=== PATIENT | female | born 1985 | race Caucasian/White ===

== ENCOUNTER 2018-11-08 09:21 | Emergency (ER) | payer OTHER ==
[~2018-11-08] VITALS: Ht 157.5 cm; Wt 95.3 kg
[~2018-11-08 09:21] MED LIST: CIPRO500 MG PO; IBUPROFEN800 MG PO; NORFLEX100MG PO; PREMARIN1.25 MG PO; TYLENOL-CODEINE1 TAB PO; ULTRACET PO
[2018-11-08] MEDS ORDERED: ORPHENADRINE C100 MG PO (11:45)
[2018-11-08] MEDS ORDERED: DICLOFENAC POTA50 MG PO (11:45)
[2018-11-08] MEDS ORDERED: VISTARIL25 MG PO (11:45)
== END 2018-11-08 12:37 | disposition home or self-care (01) ==
LOC: ER 09:21
DX: M94.0 Chondrocostal junction syndrome [Tietze] (principal); R07.89 Other chest pain; F41.8 Other specified anxiety disorders

== ENCOUNTER → 2019-02-25 | Emergency (ER) | payer OTHER ==
[~2019-02-25] VITALS: Ht 157.5 cm; Wt 93.4 kg
[~2019-02-25] MED LIST changes: +DICLOFENAC POTA50 MG PO; +ORPHENADRINE C100 MG PO; +VISTARIL25 MG PO
== END | disposition left against medical advice (07) ==
LOC: ER 00:07
DX: Z53.20 Procedure and treatment not carried out because of patient's decision for unspecified reasons (principal)

== ENCOUNTER 2019-11-11 00:19 | Emergency (ER) | payer OTHER ==
[~2019-11-11] VITALS: Ht 157.5 cm; Wt 96.2 kg
[2019-11-11] MEDS ORDERED: RELAFEN 750 MG (00:59)
[2019-11-11] MEDS ORDERED: NORFLEX 100 MG (00:59)
[2019-11-11] MEDS ORDERED: MEDROLPACK PO (03:15)
== END 2019-11-11 03:21 | disposition home or self-care (01) ==
LOC: ER 00:19
DX: G51.0 Bell's palsy (principal); R20.0 Anesthesia of skin

== ENCOUNTER 2020-12-01 10:25 | Emergency (ER) | payer OTHER ==
[~2020-12-01] VITALS: Ht 160 cm; Wt 102.5 kg
[~2020-12-01 10:25] MED LIST changes: +MEDROLPACK PO; +NORFLEX 100 MG; +RELAFEN 750 MG
[2020-12-01] MEDS ORDERED: KETO10TA2 PO (15:44)
[2020-12-01] MEDS ORDERED: NORFLEX100MG PO (15:44)
== END 2020-12-01 15:57 | disposition home or self-care (01) ==
LOC: ER 10:25
DX: R07.89 Other chest pain (principal); F06.4 Anxiety disorder due to known physiological condition; Z03.818 Encounter for observation for suspected exposure to other biological agents ruled out

== ENCOUNTER → 2021-01-28 | Emergency (ER) | payer OTHER ==
[~2021-01-28] VITALS: Ht 157.5 cm; Wt 100.7 kg
[~2021-01-28] MED LIST changes: +DULCOLAX10 MG RECTAL; +KETO10TA2 PO; +MORGIDOX100 MG PO; +MOTRIN IB200 M1 PO; +PROBIOTIC1 EAC2 PO
== END | disposition home or self-care (01) ==
LOC: ER 00:59
DX: R10.13 Epigastric pain (principal); N80.8 Other endometriosis

== ENCOUNTER 2023-03-10 23:50 | Emergency (ER) | payer OTHER ==
[~2023-03-10] VITALS: Ht 157.5 cm; Wt 85.7 kg
[2023-03-10] MEDS ORDERED: COZAAR25 MG PO (23:59)
== END 2023-03-11 04:37 | disposition home or self-care (01) ==
LOC: ER 23:50
DX: A08.8 Other specified intestinal infections (principal); R11.10 Vomiting, unspecified; R10.9 Unspecified abdominal pain; Z88.0 Allergy status to penicillin; Z91.011 Allergy to milk products; Z91.018 Allergy to other foods

== ENCOUNTER 2023-03-15 22:49 | Emergency (ER) | payer OTHER ==
[~2023-03-15] VITALS: Ht 157.5 cm; Wt 84.4 kg
[~2023-03-15 22:49] MED LIST changes: +COZAAR25 MG PO
[2023-03-16] MEDS ORDERED: KETO10TA2 PO (03:55)
[2023-03-16] MEDS ORDERED: ORPHENADRINE C100 MG PO ×2 (03:55→03:56)
== END 2023-03-16 04:06 ==
LOC: ER 22:49
DX: R51.9 Headache, unspecified (principal); S49.82XA Other specified injuries of left shoulder and upper arm, initial encounter; W18.39XA Other fall on same level, initial encounter; Y93.F1 Activity, caregiving, bathing; Y92.012 Bathroom of single-family (private) house as the place of occurrence of the external cause; M54.2 Cervicalgia; I10 Essential (primary) hypertension; Z87.09 Personal history of other diseases of the respiratory system; E16.1 Other hypoglycemia; Z88.0 Allergy status to penicillin; Z91.011 Allergy to milk products; Z91.018 Allergy to other foods

== ENCOUNTER 2023-05-03 09:13 | Emergency (ER) | payer OTHER ==
[~2023-05-03] VITALS: Ht 157.5 cm; Wt 82.1 kg
[2023-05-03] MEDS ORDERED: PRILOSEC OTC20 MG PO (09:30)
== END 2023-05-03 11:25 | disposition home or self-care (01) ==
LOC: ER 09:13
DX: F41.8 Other specified anxiety disorders (principal); Z88.0 Allergy status to penicillin; Z91.011 Allergy to milk products; Z91.018 Allergy to other foods; I10 Essential (primary) hypertension

== ENCOUNTER 2023-07-07 01:48 | Emergency (ER) | payer OTHER ==
[~2023-07-07] VITALS: Ht 157.5 cm; Wt 83.9 kg
[~2023-07-07 01:48] MED LIST changes: +PRILOSEC OTC20 MG PO
[2023-07-07] MEDS ORDERED: COZAAR50 MG (02:11)
[2023-07-07] MEDS ORDERED: PROTONIX40 MG (02:11)
== END 2023-07-07 05:58 | disposition home or self-care (01) ==
LOC: ER 01:48
DX: R51.9 Headache, unspecified (principal)

== ENCOUNTER 2024-10-23 12:38 | Emergency (ER) | payer OTHER ==
[~2024-10-23] VITALS: Ht 157.5 cm; Wt 79.4 kg
[~2024-10-23 12:38] MED LIST changes: +COZAAR50 MG; +LEVSIN/SL0.125 MG SL; +METRONIDAZOLE500 MG PO; +OMEPRAZOLE40 MG PO; +PEPCID AC20 MG; +PROTONIX40 MG
[2024-10-23 15:17] VITALS: BP 140/88; O2SAT 99
[2024-10-23] MEDS ORDERED: CARDIZEM CD120 MG PO (15:17)
[2024-10-23] MEDS ORDERED: TRAMADOL HCL 50 MG TABLET PO ONE (19:15)
[2024-10-23 19:38] LABS: HEMATOCRIT 42.5 % (36.0-45.00); HEMOGLOBIN 14.4 g/dL (12.0-15.00); MEAN CELL VOLUME 87.9 fL (80.00-100.00); MEAN CORPUSCULAR HEMOGLOBIN 29.8 pg (27.00-32.0); MEAN CORPUSCULAR HGB CONC 33.9 g/dl (32.0-36.0); PLATELET COUNT 240 K/uL (150-450); RED BLOOD COUNT 4.83 M/uL (4.00-6.00); RED CELL DISTRIBUTION WIDTH 12.7 % (11.5-14.5)
[2024-10-23 19:56] LABS: CALCIUM 9.6 mg/dL (8.5-10.1); CREATININE SERUM 0.66 mg/dL (0.55-1.02); GFR 99.7; POTASSIUM 3.72 mEq/L (3.5-5.1)
[2024-10-23 19:58] LABS: INR 1.04; PARTIAL THROMBOPLASTIN TIME 26.5 SECONDS (22.0-34.0); PROTHROMBIN TIME 11.3 SECONDS (9.0-11.5)
[2024-10-24] MEDS ORDERED: HYOSCYAMINE SULFATE 0.125 MG TAB.SUBL SL ONE (02:00)
== END 2024-10-24 01:59 | disposition home or self-care (01) ==
LOC: ER 12:40
PROVIDERS: Emergency Medicine
DX: N83.209 Unspecified ovarian cyst, unspecified side (principal); R10.9 Unspecified abdominal pain; Z88.0 Allergy status to penicillin; Z91.011 Allergy to milk products; Z91.018 Allergy to other foods; K57.32 Diverticulitis of large intestine without perforation or abscess without bleeding

== ENCOUNTER 2025-02-05 19:45 | Inpatient (IN) | payer OTHER ==
[~2025-02-05] VITALS: Ht 152.4 cm; Wt 80.3 kg
[~2025-02-05 19:45] MED LIST changes: +CARDIZEM CD120 MG PO
--- NOTE | 2025-02-05 20:09 | NUR ---
PTE ALERTA Y ORIENTADA X3 REFIERE TENER DOLOR INTENSO EN ABDOMEN BAJO, NOTIFICA PADECER DE DIVERTICULOS E INTENTO TRATARSE EN HOGAR. NIEGA DIARREAS Y/O VOMITOS. SE MIDEN SV Y SE UBICA.
[2025-02-05] MEDS ORDERED: FAMOTIDINE/PF 20 MG in 0.9 % SODIUM CHLORIDE 8 ML IV PUSH STA (20:26)
[2025-02-05] MEDS ORDERED: METRONIDAZOLE/SODIUM CHLORIDE 500 MG/100 ML PIGGYBACK IV ONE ×2 (20:30→20:33)
[2025-02-05] MEDS ORDERED: CIPROFLOXACIN IN 5 % DEXTROSE 400 MG/200 ML PIGGYBAG IV ONE ×2 (20:30→20:32)
[2025-02-05] MEDS ORDERED: ONDANSETRON HCL 2 MG/ML VIAL IV ONE (20:30)
[2025-02-05] MEDS ORDERED: 0.9 % SODIUM CHLORIDE 1,000 ML IV SCH ×2 (20:30→23:30)
[2025-02-05] MEDS ORDERED: KETOROLAC TROMETHAMINE 30 MG VIAL IV ONE (20:30)
[2025-02-05] MEDS ORDERED: ONDANSETRON HCL 2 MG/ML VIAL ONE (20:32)
[2025-02-05] MEDS ORDERED: KETOROLAC TROMETHAMINE 30 MG VIAL ONE (20:32)
[2025-02-05] MEDS ORDERED: FAMOTIDINE/PF 20 MG/2 ML VIAL ONE (20:33)
[2025-02-05 21:03] LABS: HEMATOCRIT 37.5 % (36.0-45.00); HEMOGLOBIN 12.8 g/dL (12.0-15.00); MEAN CELL VOLUME 85.7 fL (80.00-100.00); MEAN CORPUSCULAR HEMOGLOBIN 29.3 pg (27.00-32.0); MEAN CORPUSCULAR HGB CONC 34.2 g/dl (32.0-36.0); PLATELET COUNT 265 K/uL (150-450); RED BLOOD COUNT 4.37 M/uL (4.00-6.00); RED CELL DISTRIBUTION WIDTH 12.7 % (11.5-14.5)
[2025-02-05 21:19] LABS: ALBUMIN 3.8 gm/dL (3.4-5.0); BILIRUBIN TOTAL 0.59 mg/dL (0.3-1.2); CALCIUM 9.5 mg/dL (8.5-10.1); CREATININE SERUM 0.62 mg/dL (0.55-1.02); GFR 107.16; POTASSIUM 3.67 mEq/L (3.5-5.1); TOTAL PROTEIN 7.8 gm/dL (6.4-8.2)
--- NOTE | 2025-02-05 21:19 | NUR ---
SE EDUCA PACIENTE SOBRE EL [place] MEDICO Y ESTA REFIERE ENTENDER. SE RYAN MUESTRAS DE LABORATORIOS Y SE ENVIAN. SE CANALIZA Y SE ADMINITRA MEDICAMENTOS SARIAH ORDEN MEDICA. PENDIENTE A U/A Y CT SCAN
[2025-02-05 21:59] LABS: PH,URINE 6.5 (5.0-8.0); URINE APPEARANCE Clear; URINE BILIRRUBIN Negative (NEGATIVE); URINE BLOOD Negative; URINE COLOR Yellow; URINE GLUCOSE Negative (NEGATIVE); URINE KETONE Trace (NEGATIVE); URINE LEUKOCYTE Negative; URINE NITRATE Negative; URINE PROTEIN Negative (NEGATIVE); URINE UROBILINOGEN 0.2 E.U./dl
[2025-02-05 22:03] LABS: URINE BACTERIA 24.4 uL (0.0-1933); URINE EPITHELIAL CELLS 2.2 uL (0.0-38.8); URINE RBC 1.6 uL (0.0-20.8); URINE WBC 0.4 uL (0.0-23.2)
[2025-02-05] MEDS ORDERED: MORPHINE SULFATE 4 MG/ML CARTRIDGE IV SCH (23:30)
[2025-02-05] MEDS ORDERED: ONDANSETRON HCL 4 MG in 0.9 % SODIUM CHLORIDE 50 ML IV PRN (23:30)
[2025-02-05] MEDS ORDERED: ACETAMINOPHEN 500 MG GEL..CAP PO PRN (23:30)
[2025-02-06] MEDS ORDERED: METRONIDAZOLE/SODIUM CHLORIDE 100 ML IV SCH (01:00)
[2025-02-06] MEDS ORDERED: FAMOTIDINE/PF 20 MG in 0.9 % SODIUM CHLORIDE 8 ML IV PUSH SCH (05:00)
[2025-02-06 07:44] VITALS: BP 106/72; O2SAT 99
[2025-02-06 08:28] LABS: INR 1.07; PARTIAL THROMBOPLASTIN TIME 28.7 SECONDS (22.0-34.0); PROTHROMBIN TIME 11.6 SECONDS (9.0-11.5)
[2025-02-06 08:54] VITALS: BP 124/74; O2SAT 99
[2025-02-06] MEDS ORDERED: ENOXAPARIN SODIUM 40 MG/0.4 ML SYRINGE SUBCUTANEO SCH (09:00)
[2025-02-06] MEDS ORDERED: LOSARTAN POTASSIUM 50 MG TABLET PO SCH (09:00)
[2025-02-06] MEDS ORDERED: CIPROFLOXACIN IN 5 % DEXTROSE 200 ML IV SCH (09:00)
[2025-02-06] MEDS ORDERED: DILTIAZEM HCL 120 MG CAP.SR.24H PO SCH (09:00)
[2025-02-06] MEDS ORDERED: KETOROLAC TROMETHAMINE 30 MG VIAL IV PRN (14:00)
[2025-02-06 17:20] VITALS: BP 132/74
[2025-02-06] MEDS ORDERED: MORPHINE SULFATE 2 MG/ML CARTRIDGE IV PRN (21:00)
[2025-02-07 00:46] VITALS: BP 117/71; O2SAT 99
[2025-02-07 09:24] VITALS: BP 138/78
[2025-02-07 17:22] VITALS: BP 130/89
[2025-02-08 01:00] VITALS: BP 119/68; O2SAT 95
[2025-02-08 09:21] VITALS: BP 119/61
[2025-02-08 11:01] LABS: HEMATOCRIT 37.2 % (36.0-45.00); HEMOGLOBIN 12.8 g/dL (12.0-15.00); MEAN CELL VOLUME 85.5 fL (80.00-100.00); MEAN CORPUSCULAR HEMOGLOBIN 29.4 pg (27.00-32.0); MEAN CORPUSCULAR HGB CONC 34.4 g/dl (32.0-36.0); PLATELET COUNT 282 K/uL (150-450); RED BLOOD COUNT 4.35 M/uL (4.00-6.00); RED CELL DISTRIBUTION WIDTH 12.6 % (11.5-14.5)
[2025-02-08 11:39] LABS: ALBUMIN 3.5 gm/dL (3.4-5.0); BILIRUBIN TOTAL 0.53 mg/dL (0.3-1.2); CALCIUM 8.9 mg/dL (8.5-10.1); CREATININE SERUM 0.56 mg/dL (0.55-1.02); GFR 120.52; GLOBULINA 3.2 G/DL (2.4-3.5); PHOSPHOROUS 2.7 mg/dL (2.5-4.9); POTASSIUM 3.58 mEq/L (3.5-5.1); TOTAL PROTEIN 6.7 gm/dL (6.4-8.2)
[2025-02-08 12:08] LABS: C-REACTIVE PROTEIN 7.08 MG/DL (0.00-0.29)
[2025-02-08] MEDS ORDERED: DICYCLOMINE HCL 20 MG TABLET PO SCH (17:00)
[2025-02-08 19:18] VITALS: BP 120/80
[2025-02-09] VITALS: BP 136/77; O2SAT 97
[2025-02-09 09:03] VITALS: BP 100/70; O2SAT 97
[2025-02-09 17:57] VITALS: BP 128/85
[2025-02-10 02:50] VITALS: BP 113/75
[2025-02-10 06:12] LABS: HEMOGLOBIN 12.5 g/dL (12.0-15.00); MEAN CELL VOLUME 86.6 fL (80.00-100.00); MEAN CORPUSCULAR HEMOGLOBIN 29.3 pg (27.00-32.0); MEAN CORPUSCULAR HGB CONC 33.8 g/dl (32.0-36.0); PLATELET COUNT 287 K/uL (150-450); RED BLOOD COUNT 4.27 M/uL (4.00-6.00); RED CELL DISTRIBUTION WIDTH 12.4 % (11.5-14.5)
[2025-02-10 08:49] VITALS: BP 121/63
[2025-02-10 08:51] VITALS: BP 127/86
[2025-02-10] MEDS ORDERED: DIATRIZOATE MEGLUMINE, SODIUM 30 ML BOTTLE PO NR (13:10)
[2025-02-10 17:57] VITALS: BP 131/85; O2SAT 100
[2025-02-11 02:35] VITALS: BP 126/70; BP 136/76; O2SAT 100; O2SAT 98
[2025-02-11 09:59] VITALS: BP 132/81; O2SAT 99
== END 2025-02-11 11:20 | disposition home or self-care (01) | DRG 392 ==
LOC: ER 19:46 → MEDI 23:31
PROVIDERS: General Practice; Internal Medicine Infectious Disease; ADMIT Student in an Organized Health Care Education/Training Program; ATTEND Student in an Organized Health Care Education/Training Program
PROC: BW21ZZZ Computerized Tomography (CT Scan) of Abdomen and Pelvis (ICD-10-PCS; 2025-02-05)
PROC: BW4GZZZ Ultrasonography of Pelvic Region (ICD-10-PCS; 2025-02-09)
PROC: 02HV33Z Insertion of Infusion Device into Superior Vena Cava, Percutaneous Approach (ICD-10-PCS; principal; 2025-02-10)
PROC: BW21YZZ Computerized Tomography (CT Scan) of Abdomen and Pelvis using Other Contrast (ICD-10-PCS; 2025-02-10)
DX: K57.20 Diverticulitis of large intestine with perforation and abscess without bleeding (principal); N13.30 Unspecified hydronephrosis; N83.02 Follicular cyst of left ovary; I10 Essential (primary) hypertension; E78.5 Hyperlipidemia, unspecified